=== PATIENT | male | born 1975 | race Caucasian/White ===

== ENCOUNTER 2022-03-18 14:29 | Emergency (ER) | payer SELFPAY | END 2022-03-18 17:45 | disposition home or self-care (01) | LOC: JD.ED 14:29 | DX: S53.401A Unspecified sprain of right elbow, initial encounter (principal); S00.81XA Abrasion of other part of head, initial encounter; S00.511A Abrasion of lip, initial encounter; F10.920 Alcohol use, unspecified with intoxication, uncomplicated; Y04.0XXA Assault by unarmed brawl or fight, initial encounter | CPT/HCPCS: 73080-26-RT; 73080-RT; 99283; 99284 ==

== ENCOUNTER 2022-03-29 10:45 | Emergency (ER) | payer SELFPAY | END 2022-03-29 11:38 | LOC: JD.ED 10:45 | DX: F10.920 Alcohol use, unspecified with intoxication, uncomplicated (principal); Z88.8 Allergy status to other drugs, medicaments and biological substances | CPT/HCPCS: 99283 ==